=== PATIENT | male | born 1990 | race Caucasian/White ===

== ENCOUNTER 2017-01-25 01:06 | Emergency (ER) | payer OTHER ==
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
[~2017-01-25 01:06] MED LIST: CLEOCIN PO; KEFLEX PO; LORTAB ELIXIR480 ML PO; PHENERGAN PO; PHENERGAN PR; PHENERGAN W/CO120 ML PO; VICODIN 5/500 T1 TAB PO
== END 2017-01-25 04:08 | disposition home or self-care (01) ==
LOC: CED 01:06
DX: S09.90XA Unspecified injury of head, initial encounter (principal); S01.01XA Laceration without foreign body of scalp, initial encounter; S62.300A Unspecified fracture of second metacarpal bone, right hand, initial encounter for closed fracture; F17.200 Nicotine dependence, unspecified, uncomplicated; Z88.0 Allergy status to penicillin; Z79.899 Other long term (current) drug therapy; W22.8XXA Striking against or struck by other objects, initial encounter; Y92.488 Other paved roadways as the place of occurrence of the external cause
CPT/HCPCS: 29125; 70450; 73130; 99284

== ENCOUNTER 2017-03-27 19:51 | Emergency (ER) | payer OTHER | END 2017-03-27 22:51 | disposition short-term general hospital (02) | LOC: CED 19:51 → CFTX 19:51 → CED 20:12 → CFTX 22:51 | DX: L03.011 Cellulitis of right finger (principal); F17.210 Nicotine dependence, cigarettes, uncomplicated; Z88.0 Allergy status to penicillin; Z88.8 Allergy status to other drugs, medicaments and biological substances | CPT/HCPCS: 99284 ==

== ENCOUNTER 2017-04-08 23:56 | Emergency (ER) | payer OTHER | END 2017-04-09 01:00 | disposition left against medical advice (07) | LOC: CED 23:56 | DX: Z53.21 Procedure and treatment not carried out due to patient leaving prior to being seen by health care provider (principal) ==

== ENCOUNTER 2017-04-09 02:12 | Emergency (ER) | payer OTHER | END 2017-04-09 04:23 | disposition home or self-care (01) | LOC: CED 02:12 | DX: L03.312 Cellulitis of back [any part except buttock and flank] (principal); F17.200 Nicotine dependence, unspecified, uncomplicated; Z88.7 Allergy status to serum and vaccine | CPT/HCPCS: 99283 ==